=== PATIENT | male | born 1995 | race Caucasian/White ===

== ENCOUNTER 2016-09-07 13:07 | Emergency (ER) | payer SELFPAY ==
[~2016-09-07] VITALS: Ht 195.6 cm; Wt 75.9 kg
[2016-09-07 13:10] VITALS: Ht 195.6 cm; Wt 75.9 kg
[2016-09-07] MEDS ORDERED: NO ROUTINE MEDS (13:27)
[2016-09-07] MEDS ORDERED: ALBUTEROL/IPRATROPIUM INHAL. 2.5mg-0.5mg/3ml Neb. AEROSOL ONE (13:45)
--- NOTE | 2016-09-07 13:45 | NUR ---
REPORT REPORT TO AND CARE ASSUMED BY BRIEN RIGGS
--- NOTE | 2016-09-07 14:10 | NUR ---
XR Patient out to XRay.
--- NOTE | 2016-09-07 14:15 | NUR ---
XR Pt returns from XRay
--- NOTE | 2016-09-07 14:21 | NUR ---
Pt Patient tells this nurse that he is anxious to leave because he has things he has to do.
[2016-09-07] MEDS ORDERED: ALBU8.5H INH (14:22)
[2016-09-07] MEDS ORDERED: AZIT500T2 PO (14:22)
--- NOTE | 2016-09-07 14:24 | ERPDOC ---
Departure Disposition Decision Date: Sep 07, 2016 Disposition Decision Time: 14:21 Disposition: 01 DISCHARGED HOME, SELF-CARE Impression Impression Impression: Primary Impression: Acute bronchitis Bronchitis organism: unspecified organism Qualified Codes: J20.9 - Acute bronchitis, unspecified Severity: Mild Condition: Improved Seen By: Physician only Referrals: [facility] 2 Days Patient Instructions: Acute Bronchitis (ED) Problems/Meds/Labs Reviewed?: Yes Medications reviewed and manag: Yes Follow up care ordered?: Yes Mental Status: Alert, Oriented Scripts Albuterol Sulfate (Proair HFA 90 mcg/actuation) 8.5 Gm Hfa.aer.ad 2 PUFF INH Q4H Y for WHEEZING, #1 INHALER 0 Refills Prov: JULIAN HERNANDEZ DO 09/07/16 Azithromycin (Zithromax Tri-Lemuel) 500 Mg Tablet 500 MG PO DIRECTED, #1 PACK 0 Refills 2 TABLETS FOR 1 DAY THEN, 1 TABLET FOR 4 DAYS Prov: JULIAN HERNANDEZ DO 09/07/16 HPI - General Medical General Chief Complaint: Cough,Fever,Flu,URI Stated Complaint: TROUBLE BREATHING, COUGHING Time Seen by Provider: 13:29 Source: patient Exam Limitations: no limitations HPI - General Medical Initial Comments 21-year-old male presents to the emergency department with a chief complaint of a cough productive of yellow sputum and wheezing. Patient noted onset of symptoms 4 days ago while at home. Symptoms have been persistent in nature with a gradual progression. Patient denies any current pain or discomfort. Patient has a history of similar symptoms in the past with viral illnesses. Patient does not note any exacerbating or remitting factors. No other complaints or associated symptoms. Occurred At: home Onset: Gradual Past History Past Medical History Pt denies signifigant H Surgical History Denies Surgeries Family History Family History: Negative Social History Smoking Status: Current every day smoker Substance Use Type: does not use Alcohol Intake: none Review of Systems Constitutional Constitutional: DENIES: chills, fever Eyes General: DENIES: erythema, exudate Lids/Accessories: DENIES: erythema, swelling Vision: DENIES: acuity, blurring ENMT Ears: DENIES: drainage, erythema Hearing: DENIES: hearing loss Balance: DENIES: ataxia, falling to one side Sinuses: DENIES: congestion, pain Nose: DENIES: nosebleeds, pain Mouth/Throat: DENIES: painful swallowing, sore throat Teeth: DENIES: pain Jaw: DENIES: pain Cardiovascular Cardiac: DENIES: chest pain, dyspnea on exertion Rhythm/Rate: DENIES: irregular beat, palpitations Vascular: DENIES: pedal edema, unilateral swelling Pulmonary Respiratory: cough, sputum, DENIES: dyspnea, pleuritic chest pain GI Upper Abdomen: DENIES: nausea, pain, vomiting Lower Abdomen: DENIES: diarrhea, pain General: DENIES: dysuria, frequency Musculoskeletal General: DENIES: joint pain, tenderness Integumentary Skin: DENIES: itching, rash Neurological General: DENIES: headache, numbness, weakness Psychiatric Psychiatric: DENIES: emotional instability, suicidal ideation/attempt Endocrine Endocrine: DENIES: polydipsia, polyphagia Hematologic/Lymphatic Hematologic/Lymphatic: DENIES: frequent nosebleeds, lymphadenopathy Allergic/Immunological Allergic/Immunoligical: DENIES: allergic reactions, hives Physical Exam General General Nourishment: well nourished, well developed, appears stated age, no acute distress, adult General Body Habitus: well groomed Vitals and Pain First Documented Vital Signs Date Time Temp Pulse Resp B/P Pulse Ox O2 Delivery O2 Flow Rate FiO2 09/07/16 13:10 98.2 107 16 127/84 98 Room Air Weight: Kilograms: 75.900 Height (feet): 6 Height (inches): 5.00 Triage Pain Scale: RN VS reviewed by Provider: Yes Normal Exams: Head: Normocephalic w/o trauma Eyes: Pupils are PERRLA w/ EOMI, No scleral icterus, irritation, or foreign bodies noted ENMT: No facial trauma, nasal exudates, pharyngeal erythema, or exudates are noted Dental: No fractured, loose, or missing teeth noted Neck: Full range of motion, without adenopathy, JVD, bruits or thyromegaly Chest/Resp: with good airflow, and symmetry bilaterally CV: Regular rate and rhythm, without murmur or gallop, Pulses 2+ all extremities, capillary refill, <2 seconds all ext., no pedal edema noted Abdomen: Bowel sounds positive, soft, non-tender, non-distended, no hepatosplenomegaly, masses or bruits noted Lymphatic: No lymphadenopathy, or lymphedema noted Musculoskeletal: No tenderness, or deformity noted, good range of motion, all extremities Integumentary: No rashes, hives, or bruising noted, hair and nails, without abnormality Neurologic: Patient is alert, and oriented, cranial nerves, motor/sensory/ cerebellar, exams w/o gross deficits, to observation Psychiatric: Patient exhibits, appropriate attention, emotion and affect Respiratory (brief) Comments Occasional scattered wheezes bilaterally. Differential Diagnoses Considering: Pneumonia, Other (URI/acute bronchitis/viral syndrome) Progress Results/Orders Orders Procedure Category Date Status Time Chest, Pa & Lateral RAD 09/07/16 Taken 13:41 Albuterol/Ipratropium PHA 09/07/16 Complete (Duoneb) 13:45 Medications Current ED Medications Albuterol/ Ipratropium (Duoneb) 3 ml O ONCE AEROSOL ; Start 09/07/16 at 13:45; Stop 09/07/16 at 13:46; Status DC Progress Progress Patient is given a DuoNeb treatment in the emergency department which relieved his wheezing. Patient is provided with prescriptions for a Z-Lemuel and albuterol metered-dose inhaler. Patient is in agreement with the current plan of management. Patient is discharged home in improved condition and is to his to follow up as instructed. Patient is to return to the emergency department if his condition worsens or changes in any manner. Patient is in agreement with the current plan of management. Xray Xray : Xray: CXR PA/Lat Interpretation: Normal, Interpreted by JULIAN Carroll DO Sep 07, 2016 14:24
[2016-09-07 14:35] VITALS: BP 127/84; PULSE 107; RESP 24; TEMP 98.2; O2SAT 98
--- NOTE | 2016-09-07 14:35 | NUR ---
Rx Pt verbalizes concern over potential cost of prescriptions. This nurse tells patient that both are important and that I am unsure about what they cost, suggested to check with pharmacy.
--- NOTE | 2016-09-08 09:20 | DI ---
INDICATION: ITS.REASON: cough and congestion for several days PROCEDURE: CHEST 2-VIEWS UPRIGHT (PA \T\ LAT) Encounter: Initial COMPARISON: None FINDINGS: The lungs are clear without evidence of focal abnormal airspace opacity. There is no pleural effusion or pneumothorax. The heart size, mediastinal contours and pulmonary vascularity are within normal limits. There is no significant skeletal abnormality. IMPRESSION: No acute cardiopulmonary disease. .
== END 2016-09-07 14:35 | disposition home or self-care (01) ==
LOC: ED 13:07
DX: J20.9 Acute bronchitis, unspecified (principal); F17.200 Nicotine dependence, unspecified, uncomplicated
CPT/HCPCS: 94640